=== PATIENT | male | born 1945 | race Caucasian/White ===

== ENCOUNTER 2017-09-21 10:00 | Day surgery (SDC) | payer OTHER, SELFPAY ==
[2017-09-21] MEDS: PROPARACAINE 0.5% OPHTH SOL 2 DROPS EYE-OP (10:40)
[2017-09-21 10:46] VITALS: BMI 23.7
[2017-09-21] MEDS: CATARACT EYE COMPOUND (10 DROPS/SYRINGE) 3 DROPS EYE-OP (10:49)
[2017-09-21 10:51] VITALS: BP 140/70; PULSE 52; RESP 16; TEMP 36.2; O2SAT 98
--- NOTE | 2017-09-21 11:32 | P.OP.PRE_ITS ---
Pre-operative Note Interval Note Changes: No
--- NOTE | 2017-09-21 11:32 | PM.PREOP ---
Pre-operative Note Interval Note Changes: No
--- NOTE | 2017-09-21 11:33 | P.OP_ITS ---
Operative Date/Time/Diagnoses Pre-op diagnosis: Cataract Left eye Post-op diagnosis: same Procedure & Clinicians Surgeon: Mulugeta Khan Anesthesia Type: MAC +/- and Sedation Operative Notes Procedure in detail: Patient brought to the operating suite. Tetracaine drops placed in the left eye. Patient was prepped and draped in sterile manner. Wire lid speculum was placed in the eye. Betadine drops were placed on the eye. This was irrigated. Lidocaine jelly was placed on the eye. A paracentesis port was created with a side-port blade. 0.1 mL 1% preservative free lidocaine was injected into the anterior chamber. The anterior chamber was deepened with viscoelastic. 2.6 mm keratome was used to create a temporal clear corneal incision. Cystotome and Utrata forceps were used to create continuous tear capsulorrhexis. Balanced salt solution was used to hydro dissect the nucleus. The phacoemulsification handpiece was inserted and the nucleus was removed using the stop and chop technique. The irrigation aspiration handpiece was inserted and the remaining cortex was removed. Anterior chamber was deepened with viscoelastic. An Matson ZCB00 intraocular lens with a power of 23.5 was injected into the capsular bag. Irrigation aspiration handpiece was inserted and the remaining viscoelastic was removed. Incision was hydrated with balanced salt solution and found to be leak free with pressure with Weck- Janna sponges. 0.1 mL Vigamox injected anterior chamber. 0.3 mL Kenalog 10 mg was injected subconjunctivally. Lid speculum was removed. The patient left the operating room in excellent condition. Complications: none Condition: stable Disposition: same day surgery
[2017-09-21] MEDS: CHONDROIDTIN/SOD HYALURONATE 1.05 ML SYRINGE INTRAOCULA (11:46)
[2017-09-21] MEDS: MOXIFLOXACIN OPHTH DROPS 3 ML BOTTLE 2 DROPS INJ (11:47)
[2017-09-21] MEDS: PHENYLEPHRINE/LIDOCAINE 3ML VIAL (OR) EYE-OP (11:47)
[2017-09-21] MEDS: LIDOCAINE JELLY 2% 5 ML 1 APPLIC TOP (11:47)
[2017-09-21] MEDS: TETRACAINE 0.5% OPHTH DROPS 15 ML 2 DROPS EYE-LEFT (11:47)
[2017-09-21] MEDS: TRIAMCINOLONE 50 MG/5 ML VIAL INJ (11:48)
[2017-09-21] MEDS: BALANCED SALT IRRIG SOLN NO.2 500 ML, EPINEPHrine 1 MG IRR (11:49)
[2017-09-21 12:09] VITALS: BP 138/81; PULSE 52; RESP 16; TEMP 36.7; O2SAT 94
== END 2017-09-21 12:25 ==
LOC: OR 10:00
PROVIDERS: PCP Internal Medicine; Visit Provider Ophthalmology
DX: H25.12 Age-related nuclear cataract, left eye (principal)
CPT/HCPCS: J0171; J2250; J3010; J3301

== ENCOUNTER 2017-10-12 08:02 | Day surgery (SDC) | payer OTHER, SELFPAY ==
[2017-10-12] MEDS: PROPARACAINE 0.5% OPHTH SOL 2 DROPS EYE-OP (09:01)
[2017-10-12 09:09] VITALS: BP 139/70; PULSE 54; RESP 16; TEMP 36.5; O2SAT 99; BMI 23.2
[2017-10-12] MEDS: CATARACT EYE COMPOUND (10 DROPS/SYRINGE) 3 DROPS EYE-OP (09:20)
--- NOTE | 2017-10-12 09:40 | P.OP.PRE_ITS ---
Pre-operative Note Interval Note Changes: No
--- NOTE | 2017-10-12 09:40 | PM.PREOP ---
Pre-operative Note Interval Note Changes: No
--- NOTE | 2017-10-12 09:41 | P.OP_ITS ---
Operative Date/Time/Diagnoses Pre-op diagnosis: Cataract Right eye Post-op diagnosis: same Procedure & Clinicians Procedure: Cataract Surgery Same procedure as scheduled: Yes Surgeon: Mulugeta Khan Anesthesia Type: MAC +/- and Sedation Operative Notes Procedure in detail: Patient brought to the operating suite. Tetracaine drops placed in the right eye. Patient was prepped and draped in sterile manner. Wire lid speculum was placed in the eye. Betadine drops were placed on the eye. This was irrigated. Lidocaine jelly was placed on the eye. A paracentesis port was created with a side-port blade. 0.1 mL 1% preservative free lidocaine was injected into the anterior chamber. The anterior chamber was deepened with viscoelastic. 2.6 mm keratome was used to create a temporal clear corneal incision. Cystotome and Utrata forceps were used to create continuous tear capsulorrhexis. Balanced salt solution was used to hydro dissect the nucleus. The phacoemulsification handpiece was inserted and the nucleus was removed using the stop and chop technique. The irrigation aspiration handpiece was inserted and the remaining cortex was removed. Anterior chamber was deepened with viscoelastic. An Matson ZCB00 intraocular lens with a power of 25.0 was injected into the capsular bag. Irrigation aspiration handpiece was inserted and the remaining viscoelastic was removed. Incision was hydrated with balanced salt solution and found to be leak free with pressure with Weck- Janna sponges. 0.1 mL Vigamox injected anterior chamber. 0.3 mL Kenalog 10 mg was injected subconjunctivally. Lid speculum was removed. The patient left the operating room in excellent condition. Complications: none Condition: stable Disposition: same day surgery
[2017-10-12] MEDS: CHONDROIDTIN/SOD HYALURONATE 1.05 ML SYRINGE INTRAOCULA (09:49)
[2017-10-12] MEDS: TETRACAINE 0.5% OPHTH DROPS 15 ML 2 DROPS EYE-RIGHT (09:50)
[2017-10-12] MEDS: PHENYLEPHRINE/LIDOCAINE 3ML VIAL (OR) EYE-OP (09:50)
[2017-10-12] MEDS: LIDOCAINE JELLY 2% 5 ML 1 APPLIC TOP (09:50)
[2017-10-12] MEDS: MOXIFLOXACIN OPHTH DROPS 3 ML BOTTLE 2 DROPS INJ (09:50)
[2017-10-12] MEDS: BALANCED SALT IRRIG SOLN NO.2 500 ML, EPINEPHrine 1 MG IRR (09:51)
[2017-10-12] MEDS: TRIAMCINOLONE 50 MG/5 ML VIAL INJ (09:51)
[2017-10-12 10:00] VITALS: BP 121/75; PULSE 74; RESP 16; TEMP 36.4; O2SAT 95
== END 2017-10-12 10:03 | disposition home or self-care (01) ==
PROVIDERS: PCP Internal Medicine; Visit Provider Ophthalmology
DX: H25.11 Age-related nuclear cataract, right eye (principal)
CPT/HCPCS: J0171; J2250; J3010; J3301

== ENCOUNTER → 2018-12-08 08:13 | Outpatient (CLI) | payer OTHER, SELFPAY ==
[2018-12-08 09:16] LABS: Aspartate Aminotransferase 27 IU/L (17-59); Cholesterol 167 mg/dL (140-199); HDL Cholesterol 56 mg/dL (40-60); LDL Cholesterol Calculated 92 mg/dL (<100); Triglycerides 94 mg/dL (35-150)
[2018-12-08 09:45] LABS: TSH w/ Reflex to FT4 1.26 uIU/mL (0.47-4.68)
[2018-12-08 12:29] LABS: Prostate Specific Antigen 0.079 ng/mL (0.10-4.00)
== END ==
PROVIDERS: PCP Internal Medicine; Visit Provider Internal Medicine
DX: E03.9 Hypothyroidism, unspecified (principal); C61 Malignant neoplasm of prostate; E78.2 Mixed hyperlipidemia
CPT/HCPCS: 36415; 80061; 84153; 84443; 84450

== ENCOUNTER → 2019-10-31 19:04 | Outpatient (ROUT) | payer MEDICARE, SELFPAY ==
[2019-10-31 19:12] LABS: Add Manual Diff / Slide Review NO; Basophils Absolute Auto 0 /uL (0-100); Basophils Percent Auto 0.7 % (0-2); Eosinophils Absolute Auto 0 /uL (0-450); Eosinophils Percent Auto 0.6 % (2-4); Hematocrit 42.3 % (41-53); Lymphocytes Absolute Auto 2100 /uL (1100-4500); Lymphocytes Percent Auto 39.7 % (25-40); Mean Corpuscular Hemoglobin 30.9 PG (26-34); Mean Corpuscular Volume 93.5 fL (80-100); Monocytes Absolute Auto 400 /uL (0-900); Monocytes Percent Auto 6.5 % (3-14); Neutrophils Absolute Auto 2800 /uL (1500-7000); Neutrophils Percent Auto 52.5 % (50-75); Platelet Count 200 X10^3/uL (150-400); Red Blood Cell Count 4.52 X10^6/uL (4.5-5.9); Red Cell Distribution Width 13.1 % (11.6-14.8); White Blood Cell Count 5.4 X10^3/uL (4.5-11.0)
[2019-10-31 19:21] LABS: Aspartate Aminotransferase 36 IU/L (17-59); BUN Creatinine Ratio 12.1 (6-22); Blood Urea Nitrogen 12 mg/dL (9-20); Calcium 9.1 mg/dL (8.4-10.2); Carbon Dioxide 25 mmol/L (22-32); Chloride 103 mmol/L (98-107); Cholesterol 160 mg/dL (140-199); Estimated Glomerular Filt Rate > 60.0 mL/min (>60); Glucose 93 mg/dL (80-110); HDL Cholesterol 54 mg/dL (40-60); HEMOLYSIS 39 (0-50); LDL Cholesterol Calculated 93 mg/dL (<100); Potassium 4.6 mmol/L (3.4-5.1); Sodium 134 mmol/L (137-145); Triglycerides 63 mg/dL (35-150)
[2019-10-31 19:52] LABS: Prostate Specific Antigen < 0.064 ng/mL (0.10-4.00)
[2019-10-31 20:10] LABS: Vitamin B12 676 pg/mL (239-931)
[2019-10-31 20:15] LABS: Free T4, Direct Thyroxine 2.27 ng/dL (0.78-2.19)
[2019-11-02 11:59] LABS: Vitamin D 25 Hydroxy (D3) 43.5 ng/mL (30.0-100.0)
== END ==
PROVIDERS: PCP Internal Medicine; Visit Provider Internal Medicine
DX: E53.8 Deficiency of other specified B group vitamins (principal); E03.9 Hypothyroidism, unspecified; E78.2 Mixed hyperlipidemia; C61 Malignant neoplasm of prostate; E55.9 Vitamin D deficiency, unspecified
CPT/HCPCS: 80048; 80061; 82306; 82607; 84153; 84439; 84443; 84450; 85025

== ENCOUNTER → 2019-11-13 09:00 | Outpatient (CLI) | payer MEDICARE, SELFPAY ==
--- NOTE | 2019-11-13 09:17 | DI.CT.S_ITS ---
PROCEDURE: CT ABDOMEN PELVIS W CON INDICATIONS: Procedure and treatment not carried out for other TECHNIQUE: After the administration of oral and intravenous contrast, 5 mm thick sections acquired from the diaphragms to the symphysis. 5 mm thick coronal and sagittal reformats were performed. For radiation dose reduction, the following was used: automated exposure control, adjustment of mA and/or kV according to patient size. COMPARISON: None. FINDINGS: Image quality: Excellent. ABDOMEN: Lung bases: Mild opacity at the right lung base. No pleural effusion. Heart size is normal. Trace oral contrast in the distal esophagus. Solid organs: Liver is normal in size and enhancement. No focal lesion. Gallbladder is unremarkable. Biliary system is non-dilated. Pancreas enhances normally. Spleen is normal in size and enhancement. Small splenule is. The small nodule in the adjacent to the the stomach and splenic hilum most likely additional splenule. No adrenal nodules. Kidneys are normal in size and enhancement, without hydronephrosis. Left kidney simple appearing cyst. Peritoneum and bowel: No small bowel obstruction. Probable small duodenal diverticulum. Colonic diverticulosis. Appendix is normal caliber. No free fluid or air. Nodes and vessels: No retroperitoneal or mesenteric adenopathy. Aorta and inferior vena cava are normal in caliber. Miscellaneous: No ventral hernias. PELVIS: Genitourinary: Bladder wall thickness is normal. Miscellaneous: No inguinal hernias or adenopathy. Bones: No suspicious bony lesions. Schmorl's nodes. No vertebral body compression fractures. IMPRESSION: 1. No focal hepatic lesion. 2. No enlarged adenopathy. 3. No colonic mass identified. -recommend correlation with recent colonoscopy. 4. Diverticulosis without diverticulitis. 5. No free fluid. 6. Mild opacity at the right lung base. This could be due to infectious/inflammatory etiology versus atelectasis or aspiration. Dictated by: Garrett Hendrickson M.D. on 11/13/2019 at 10:44 Approved by: Garrett Hendricskon M.D. on 11/13/2019 at 10:56
== END ==
PROVIDERS: PCP Internal Medicine; Referring Provider Internal Medicine; Visit Provider Internal Medicine Gastroenterology
DX: K57.90 Diverticulosis of intestine, part unspecified, without perforation or abscess without bleeding (principal); N28.1 Cyst of kidney, acquired
CPT/HCPCS: 74177; Q9967

== ENCOUNTER → 2020-06-27 09:46 | Outpatient (CLI) | payer OTHER, SELFPAY ==
[2020-06-27 11:22] LABS: Vitamin D 25 Hydroxy (D3) 49.3 ng/mL (30.0-100.0)
[2020-06-27 11:35] LABS: TSH w/ Reflex to FT4 3.54 uIU/mL (0.47-4.68)
[2020-06-27 11:36] LABS: Prostate Specific Antigen 0.196 ng/mL (0.10-4.00)
[2020-06-27 11:55] LABS: Vitamin B12 550 pg/mL (239-931)
== END ==
PROVIDERS: PCP Internal Medicine; Referring Provider Internal Medicine; Visit Provider Internal Medicine
DX: E03.9 Hypothyroidism, unspecified (principal); Z85.46 Personal history of malignant neoplasm of prostate; E55.9 Vitamin D deficiency, unspecified; E53.8 Deficiency of other specified B group vitamins
CPT/HCPCS: 36415; 82306; 82607; 84153; 84443

== ENCOUNTER → 2021-12-12 13:06 | Outpatient (CLI) | payer MEDICARE, SELFPAY ==
[2021-12-12 13:54] LABS: Hemoglobin 13.8 g/dL (13.5-17.5); Mean Corpuscular HGB Conc 34.6 % (30-36); Mean Corpuscular Hemoglobin 31.9 PG (26-34); Mean Corpuscular Volume 92.3 fL (80-100); Platelet Count 185 X10^3/uL (150-400); Red Blood Cell Count 4.34 X10^6/uL (4.5-5.9); Red Cell Distribution Width 13.4 % (11.6-14.8); White Blood Cell Count 6.8 X10^3/uL (4.5-11.0)
[2021-12-12 14:23] LABS: Alanine Aminotransferase 20 IU/L (<50); Albumin 3.9 g/dL (3.5-5.0); Albumin Globulin Ratio 1.1 (1.0-2.8); Alkaline Phosphatase 66 U/L (38-126); Aspartate Aminotransferase 31 IU/L (17-59); BUN Creatinine Ratio 16.9 (6-22); Bilirubin Total 0.8 mg/dL (0.2-1.3); Blood Urea Nitrogen 20 mg/dL (9-20); Calcium 8.4 mg/dL (8.4-10.2); Carbon Dioxide 27 mmol/L (22-32); Chloride 101 mmol/L (98-107); Cholesterol 153 mg/dL (140-199); Estimated Glomerular Filt Rate > 60 mL/min (>60); Globulin 3.5 g/dL (1.7-4.1); Glucose 76 mg/dL (80-110); HDL Cholesterol 57 mg/dL (40-60); HEMOLYSIS < 15 (0-50); LDL Cholesterol Calculated 67 mg/dL (<100); Potassium 4.5 mmol/L (3.4-5.1); Sodium 136 mmol/L (137-145); Total Protein 7.4 g/dL (6.3-8.2); Triglycerides 145 mg/dL (35-150)
[2021-12-12 14:52] LABS: TSH w/ Reflex to FT4 1.73 uIU/mL (0.47-4.68)
[2021-12-12 14:53] LABS: Prostate Specific Antigen 0.147 ng/mL (0.10-4.00)
[2021-12-12 15:12] LABS: Vitamin B12 626 pg/mL (239-931)
== END ==
PROVIDERS: PCP Internal Medicine; Referring Provider Internal Medicine; Visit Provider Internal Medicine
DX: C61 Malignant neoplasm of prostate (principal); E03.9 Hypothyroidism, unspecified; E53.8 Deficiency of other specified B group vitamins; E78.2 Mixed hyperlipidemia
CPT/HCPCS: 36415; 80053; 80061; 82607; 84153; 84443; 85027

== ENCOUNTER → 2022-08-02 11:26 | Outpatient (CLI) | payer OTHER, SELFPAY ==
--- NOTE | 2022-08-02 11:27 | DI.MRI.S_ITS ---
PROCEDURE: MR KNEE LT WO CON INDICATIONS: Left knee pain/torn meniscus TECHNIQUE: Noncontrast sagittal PD fast spin echo and T2 fast spin echo with fat saturation, sagittal 3-D FLASH with fat saturation; coronal T1 spin echo and PD fast spin echo with fat saturation, and axial PD fast spin echo with fat saturation through the knee. COMPARISON: [facility], CR, XR KNEE ARTHRITIC SERIES LT, 11/28/2020, 10:38. FINDINGS: Image quality: Excellent. Anterior Cruciate Ligament: Moderate mucoid degeneration of the anterior cruciate ligament with posterior pericruciate cysts, the largest of which measures approximately 13 x 5 by 8 mm. Posterior Cruciate Ligament: Intact. Medial Collateral Ligament: Mild thickening of the proximal medial collateral ligament is most likely secondary to a remote prior low-grade sprain. Lateral Collateral Ligament: Intact. Medial Meniscus: There is complex tearing of the medial meniscus. A horizontal oblique component is seen at the junction of the posterior horn and body extending to the inner third of the tibial articular surface. Additional horizontal oblique component is seen at the medial meniscal body extending to the outer third of the femoral articular surface. There is shallow radial tearing at the posterior root attachment of the medial meniscus. No significant extrusion of the medial meniscal body. Lateral Meniscus: Free edge fibrillation versus foci of shallow radial tearing at the body and the posterior horn of the lateral meniscus. Medial and Lateral Tendons: The semimembranosus tendon insertions and meniscocapsular junction appear intact. Visualized portions of the pes anserinus tendons appear normal. No abnormal bursal fluid. The long and short heads of the biceps femoris tendon appear intact. The popliteus tendon appears intact. No signs of posterolateral corner injury. Iliotibial band appears normal. Anterior Structures: The quadriceps and patellar tendons appear intact. No patellar subluxation. No femoral trochlear dysplasia or ventral trochlear prominence. No edema in the infrapatellar fat pad. Bones: No acute trabecular bone injury or fracture. Traction cystic changes are seen adjacent to the toes once of the anterior cruciate ligament. Medial Femorotibial Cartilage: Mild generalized cartilage thinning in the weight-bearing portion of the medial femorotibial compartment. Lateral Femorotibial Cartilage: Partial-thickness cartilage irregularity at the posterior weight-bearing portion of the lateral femoral condyle. Patellofemoral Cartilage: Mild partial-thickness cartilage thinning and irregularity at the trochlear groove and median ridge of the patella. Soft Tissues: There is a small joint effusion. Small medial popliteal cyst. Nonspecific prepatellar subcutaneous soft tissue edema. The musculature surrounding the knee is normal in bulk. Mild varicose veins are noted in the lateral subcutaneous tissues. IMPRESSION: 1. Complex tearing of the medial meniscus occlude the horizontal oblique components of the meniscal body extending to the tibial and fibular articular surfaces and a shallow radial component at the posterior root attachment. No significant meniscal extrusion. 2. Small foci of free edge fibrillation versus shallow radial tearing of the body and posterior horn of the lateral meniscus. 3. Moderate mucoid degeneration of the anterior cruciate ligament with posterior pericruciate cysts. 4. Chronic grade 1 sprain of the proximal medial collateral ligament. 5. Tricompartmental grade 2 chondromalacia. 6. Small joint effusion. Small medial popliteal cyst. Approved by: Callum Mejias M.D. on 08/03/2022 at 9:10
== END ==
PROVIDERS: PCP Internal Medicine; Referring Provider Internal Medicine; Visit Provider Internal Medicine
DX: S83.232A Complex tear of medial meniscus, current injury, left knee, initial encounter (principal); S83.412A Sprain of medial collateral ligament of left knee, initial encounter; M25.562 Pain in left knee; M94.262 Chondromalacia, left knee; M25.462 Effusion, left knee; M71.22 Synovial cyst of popliteal space [Baker], left knee; X58.XXXA Exposure to other specified factors, initial encounter
CPT/HCPCS: 73721

== ENCOUNTER → 2022-09-19 12:42 | Outpatient (CLI) | payer OTHER, SELFPAY ==
[2022-09-21 16:29] LABS: C difficie Toxins A and B, EIA Negative (Negative)
== END ==
PROVIDERS: PCP Internal Medicine; Referring Provider Internal Medicine; Visit Provider Internal Medicine
DX: K58.0 Irritable bowel syndrome with diarrhea (principal); R19.7 Diarrhea, unspecified
CPT/HCPCS: 87324

== ENCOUNTER 2022-10-04 19:12 | Emergency (ER) | payer OTHER, SELFPAY ==
[2022-10-04 19:15] VITALS: BP 159/77; PULSE 66; RESP 20; TEMP 36.6; O2SAT 100; BMI 23.1
[2022-10-04 20:33] LABS: Bacteria Urine None Seen; Culture Indicated Urine Cult Not Indicated; RBC Urine None Seen (0-5/HPF); Squamous Epithelial Cell Urine None Seen (0-5/HPF); WBC Urine None Seen (0-5/HPF)
--- NOTE | 2022-10-04 20:45 | ED.ABDPAIN ---
HPI - Abdominal Pain General Chief Complaint: Abdominal Pain Stated Complaint: Abd pain thinks maybe hernia Time Seen by Provider: 10/04/22 19:24 Source: patient Mode of arrival: Ambulatory History of Present Illness HPI narrative: 77-year-old male nonsmoker with noncontributory medical history presents with his in the chief complaint of a painful bulge in his right groin and concern for hernia. He states that he was helping lift some heavy objects with friends earlier in the day and felt a sudden onset sharp, burning pain in his right groin and upon palpation noticed swelling. He states that he was able to push this swollen bulge in and thinks he likes he has a hernia. He is never had any trouble like this in the past. He is noticed the bulge come back out a few times over the course of the day but it seems to go back in without trouble. He denies any fever or chills. He has had no vomiting, no trouble with bowel movements and is still passing gas without difficulty. Related Data Previous Rx's Medication Instructions Recorded Coloplast SpeediCath #[id number] #90 ea 03/25/22 cyanocobalamin (vitamin B-12) 1,000 mcg IM Q2W #6 mL 03/25/22 1,000 mcg/mL injection solution levothyroxine 137 mcg tablet 137 mcg PO DAILY #90 tabs 03/25/22 meloxicam 7.5 mg tablet 7.5 mg PO DAILY #90 tabs 03/25/22 trazodone 50 mg tablet 50 mg PO BEDTIME PRN sleep #90 tabs 03/25/22 rosuvastatin 20 mg tablet 20 mg PO Q OTHER DAY #45 tabs 03/31/22 sulfamethoxazole 800 1 tab PO BID #14 tabs 09/11/22 mg-trimethoprim 160 mg tablet Allergies Allergy/AdvReac Type Severity Reaction Status Date / Time artichoke Allergy Severe throat Verified 09/11/22 10:11 swelling tamsulosin [From Flomax] AdvReac Verified 10/04/22 19:26 Review of Systems Review of Systems Narrative: GENERAL: Denies chills, fatigue, malaise, fever, sweats. HEENT: Denies sinus pain, ear pain, sore throat, difficulty swallowing, dizziness. RESPIRATORY: Denies dyspnea, cough, wheezing, hemoptysis, sputum. CARDIOVASCULAR: Denies chest pain, palpitations, orthopnea, edema, GASTROINTESTINAL: See HPI : See HPI MUSCULOSKELETAL: denies weakness, joint pain, or bony pain SKIN: Denies rash, skin lesions, or other NEUROLOGIC: Denies weakness, headache, numbness, change in speech, confusion, seizures, incoordination. PSYCHIATRIC: No concerning psychosocial issues. 12 point review of systems is negative except for those stated above Patient History Medical History Acquired hypothyroidism B12 deficiency Chronic low back pain Colon polyps (~2001) Hemorrhoid History of prostate cancer Irritable bowel syndrome with diarrhea Left knee injury Mixed hyperlipidemia Peripheral neuropathy Pernicious anemia Primary osteoarthritis involving multiple joints Seasonal allergies Urinary retention Venous (peripheral) insufficiency Surgical History Anesthesia History of cataract removal with insertion of prosthetic lens (~2018) History of hemorrhoidectomy (~2004) History of prostate surgery (~2017) History of umbilical hernia repair (~2007) S/P foot surgery, right (~2006) Family History Father Diabetes mellitus Mother Karlo's disease Grandfather History of heart disease Social History details: (Carri), no children household members: spouse Smoking Status: Never smoker Smoking Status: Never smoker alcohol intake frequency: 0-2 drinks per day Substance Use Type: marijuana Exam Narrative Exam Narrative: GEN: AOx3 and in mild distress EYES: Pupils are equal, round, and reactive to light and accommodation. Extraoccular muscles are intact bilaterally. There is no subconjunctival hemorrhage or exudate. CHEST: Lungs are clear to auscultation bilaterally and free of wheezes, rales, or rhonchi. Heart rate is regular rhythm, there are no murmurs, clicks, rubs, or gallops. There is no chest wall tenderness. ABD: Abdomen is soft and nontender. There is no guarding or rebound. Bowel sounds are normal in all 4 quadrants. There is no mass or organomegaly. : tender bulge in R inguinal region is easily reduced. NO overlying erythema. Examined while standing. EXT: Full painless ROM of all extremities with no loss of sensation or strength. SKIN: Warm, pink, and dry. No erythema or rash Initial Vital Signs Initial Vital Signs: Vital Signs Temperature 97.8 F 10/04/22 19:15 Pulse Rate 66 10/04/22 19:15 Respiratory Rate 20 10/04/22 19:15 Blood Pressure 159/77 H 10/04/22 19:15 Pulse Oximetry 100 10/04/22 19:15 Oxygen Delivery Method Room Air 10/04/22 19:15 Course Orders Ordered: ED Orders 10/04/22 19:30 Urine Microscopic Stat 10/04/22 21:04 US abdomen limited Stat Vital Signs Vital signs: Vital Signs - 8 hr 10/04/22 22:04 Pulse Rate 56 L Respiratory Rate 17 Blood Pressure 171/77 H Pulse Oximetry 99 Oxygen Delivery Method Room Air MDM - Abdominal Pain Lab Data Labs: Lab Results 10/04/22 Range/Units 19:30 Urine RBC None seen (0-5/HPF) Urine WBC None seen (0-5/HPF) Ur Squamous Epith Cells None seen (0-5/HPF) Urine Bacteria None seen (None) Ur Culture Indicated? Cult not indicated Point of care testing: Urine Dip Bedside Urine Glucose Negative Bedside Urine Bilirubin - Negative Bedside Urine Ketone - Negative Urine Specific [place] 1.025 Bedside Urine Occult Blood + Bedside Urine pH 6 Bedside Urine Protein - Negative Bedside Urine Urobilinogen - Negative Bedside Urine Nitrite - Negative Bedside Urine Leukocytes - Negative Esterase MDM Narrative Medical decision making narrative: [77] year old patient presents with painful bulge in right groin after lifting heavy object Multiple etiologies for patient's symptoms considered including, but not limited to: [Inguinal hernia versus rent versus muscle strain versus other] Prior Charts reviewed in our EMR Primary Historian: patient Imaging reviewed: Ultrasound demonstrates reducible fat containing inguinal hernia Patient with reassuring history and physical exam, very well-appearing and no indication for labs. History and physical are suggestive of reducible hernia which is confirmed by ultrasound. No indication for further evaluation or treatment at this time. He is encouraged to avoid activities which would increase his intra-abdominal pressure and therefore make the hernia more likely to protrude. He verbalizes understanding.. Findings and discharge diagnosis discussed with patient/family followed by verbalization of understanding Return precautions discussed with patient/family whom verbalize understanding of diagnosis and plan Discharge Plan Departure Patient Disposition: Home Clinical Impression: Inguinal hernia Instructions: DI for Groin Hernia Activity Restrictions/Additional Instructions: *You have been diagnosed with [small reducible fat containing right inguinal hernia] *What to do: *Please continue to take your regular medications as directed. [ ] New medication prescriptions sent to your pharmacy: [ ] [ ] New medication written as a paper prescription [ ] No new medications given *Please follow up with your primary care provider in 2-3 days, call for an appointment. Let them know you were seen in the Emergency Department and that we ask that you be seen in follow up. We will electronically transmit a record of today's note if your PCP is in our system * as we discussed avoid lifting heavy objects, straining on the toilet and other activities that can increase pressure in your abdomen which makes the hernia more likely took come out which then increases the chance of it becoming stuck which becomes a surgical emergency *Return to Emergency Department if you should have any new, worsening or concerning symptoms, such as [fever greater than 101 F, shaking chills, worsening pain, persistent vomiting or other bothersome symptoms] Have an amazing trip, please consider shooting me an email on your return to let me know some feedback [email or web address] Prescriptions: No Action (DME) Coloplast SpeediCath #[id number] See Rx Instructions .Route .MEDSUPPLY Qty: 90 3RF Rx Instructions: As directed; Coloplast SpeediCath #[id number]. cyanocobalamin (vitamin B-12) 1,000 mcg/mL solution 1,000 mcg IM Q2W Qty: 6 3RF levothyroxine 137 mcg tablet 137 mcg PO DAILY Qty: 90 3RF meloxicam 7.5 mg tablet 7.5 mg PO DAILY Qty: 90 3RF trazodone 50 mg tablet 50 mg PO BEDTIME PRN (Reason: sleep) Qty: 90 3RF rosuvastatin 20 mg tablet 20 mg PO Q OTHER DAY Qty: 45 3RF sulfamethoxazole-trimethoprim 800-160 mg tablet 1 tab PO BID Qty: 14 2RF Referrals: Noemi Vigil MD [Physician] - Brando Alonzo MD [Primary Care Provider] - Stand Alone Forms: Patient Portal/API
--- NOTE | 2022-10-04 21:04 | DI.US.S_ITS ---
PROCEDURE: US ABDOMEN LIMITED INDICATIONS: PALPABLE RIGHT INGUINAL LUMP TECHNIQUE: Real-time focused scanning was performed of the right inguinal region, with image documentation. COMPARISON: None. FINDINGS: There is a reducible right inguinal hernia which appears to contain herniated fat. No definite herniated bowel loops. The hernia defect measures approximately 1.3 cm in transverse dimension. IMPRESSION: 1. Reducible fat-containing right inguinal hernia. No definite herniated bowel identified sonographically but if clinically indicated further evaluation may be obtained with CT. Dictated by: Eren Albright M.D. on 10/04/2022 at 23:02 Approved by: Eren Albright M.D. on 10/04/2022 at 23:05
[2022-10-04 22:04] VITALS: BP 171/77; PULSE 56; RESP 17; O2SAT 99
== END 2022-10-04 22:05 | disposition home or self-care (01) ==
PROVIDERS: Emergency Provider Emergency Medicine; PCP Internal Medicine
DX: K40.90 Unilateral inguinal hernia, without obstruction or gangrene, not specified as recurrent (principal)
CPT/HCPCS: 76705; 81003; 81015; 99281; 99283

== ENCOUNTER → 2022-10-05 15:24 | Outpatient (CLI) | payer OTHER, SELFPAY ==
[2022-10-05 17:34] LABS: TSH w/ Reflex to FT4 0.98 uIU/mL (0.47-4.68)
[2022-10-05 17:51] LABS: Vitamin B12 690 pg/mL (239-931)
== END ==
PROVIDERS: PCP Internal Medicine; Referring Provider Internal Medicine; Visit Provider Internal Medicine
DX: E03.9 Hypothyroidism, unspecified (principal); E53.8 Deficiency of other specified B group vitamins
CPT/HCPCS: 36415; 82607; 84443

== ENCOUNTER → 2022-10-14 10:18 | Outpatient (CLI) | payer OTHER, SELFPAY ==
[2022-10-14 11:23] LABS: Add Manual Diff / Slide Review NO; Basophils Absolute Auto 0 /uL (0-100); Basophils Percent Auto 0.7 % (0-2); Eosinophils Absolute Auto 100 /uL (0-450); Eosinophils Percent Auto 1.4 % (2-4); Hemoglobin 14.3 g/dL (13.5-17.5); Lymphocytes Absolute Auto 1900 /uL (1100-4500); Lymphocytes Percent Auto 36.4 % (25-40); Mean Corpuscular HGB Conc 34.1 % (30-36); Mean Corpuscular Hemoglobin 31.2 PG (26-34); Mean Corpuscular Volume 91.6 fL (80-100); Monocytes Absolute Auto 400 /uL (0-900); Monocytes Percent Auto 7.4 % (3-14); Neutrophils Absolute Auto 2800 /uL (1500-7000); Neutrophils Percent Auto 54.1 % (50-75); Platelet Count 191 X10^3/uL (150-400); Red Blood Cell Count 4.59 X10^6/uL (4.5-5.9); White Blood Cell Count 5.2 X10^3/uL (4.5-11.0)
[2022-10-14 11:34] LABS: Alanine Aminotransferase 22 IU/L (<50); Albumin Globulin Ratio 1.3 (1.0-2.8); Alkaline Phosphatase 67 U/L (38-126); Aspartate Aminotransferase 31 IU/L (17-59); BUN Creatinine Ratio 12.3 (6-22); Bilirubin Total 0.7 mg/dL (0.2-1.3); Blood Urea Nitrogen 14 mg/dL (9-20); Calcium 9.3 mg/dL (8.4-10.2); Carbon Dioxide 30 mmol/L (22-32); Chloride 98 mmol/L (98-107); Estimated Glomerular Filt Rate > 60 mL/min (>60); Glucose 67 mg/dL (80-110); HEMOLYSIS < 15 (0-50); Potassium 4.3 mmol/L (3.4-5.1); Sodium 135 mmol/L (137-145)
== END ==
PROVIDERS: PCP Internal Medicine; Referring Provider Internal Medicine; Visit Provider Internal Medicine
DX: R10.30 Lower abdominal pain, unspecified (principal)
CPT/HCPCS: 36415; 80053; 85025

== ENCOUNTER → 2022-10-16 14:41 | Outpatient (CLI) | payer OTHER, SELFPAY ==
--- NOTE | 2022-10-16 14:42 | DI.CT.S_ITS ---
PROCEDURE: CT ABDOMEN PELVIS W CON INDICATIONS: LLQ abd pain TECHNIQUE: After the administration of oral and IV contrast, axial sections were acquired from the lung bases to the pubic symphysis. Coronal and sagittal reformats were performed. For radiation dose reduction, the following was used: automated exposure control, adjustment of mA and/or kV according to patient size. COMPARISON: CT, CT ABDOMEN PELVIS W CON, 11/13/2019, 9:50. FINDINGS: Image quality: Excellent. Lung bases: Micronodular infiltrate in the right, and to much lesser extent posterior lower lobes. No dense consolidations or pleural effusions. Tiny hiatal hernia. Heart: No significant findings. ABDOMEN: Liver: No masses Gallbladder: Normal wall thickness. Biliary ducts: Nondilated. Pancreas: Normal. Spleen: Normal size. Adrenal Glands: No nodules. Kidneys and Ureters: Normal enhancement. No hydronephrosis or hydroureter. No calcifications. Occasional subcentimeter cortical cysts. Stomach and Bowel: Stomach and small bowel loops are within normal limits. Wall thickening in the mid to distal portion of the redundant sigmoid colon. There are extensive diverticular changes in the sigmoid. Mild mucosal hyperemia in the proximal sigmoid colon. There are adjacent changes of increased vascularity. Several descending colonic diverticula are present. Colon is otherwise unremarkable. Normal appendix. Peritoneum: No abnormal intraperitoneal fluid. No free air. Ventral Wall: No hernia. Abdominal Nodes: No retroperitoneal or mesenteric adenopathy by size criteria. Vessels: Aorta and inferior vena cava are normal in size. Mild abdominal aortic atherosclerotic calcification. PELVIS: Pelvic Organs: Diminutive prostate gland. Bladder: Normal. Pelvic Nodes: No enlarged lymph nodes. Miscellaneous: No inguinal hernias are seen. Bones: Degenerative disc disease in the lumbar spine. No suspicious bone lesions. IMPRESSION: 1. Colonic diverticulosis without acute diverticulitis. Changes suggest recurrent and/or chronic diverticulitis sigmoid colon. 2. Micronodular infiltrate in both lower lobes suspicious for aspiration or other interstitial micronodular lung disease. This was mentioned on the prior exam. Images are not available for direct comparison. Dictated by: Kala Sidhu M.D. on 10/16/2022 at 23:02 Approved by: Kala Sidhu M.D. on 10/16/2022 at 23:10
== END ==
PROVIDERS: PCP Internal Medicine; Referring Provider Internal Medicine; Visit Provider Internal Medicine
DX: K57.90 Diverticulosis of intestine, part unspecified, without perforation or abscess without bleeding (principal); R10.30 Lower abdominal pain, unspecified
CPT/HCPCS: 74177

== ENCOUNTER 2022-11-20 13:13 | Day surgery (SDC) | payer OTHER, SELFPAY ==
[2022-11-16 14:48] VITALS: BMI 23.5
[2022-11-20 13:34] VITALS: BMI 23.5
[2022-11-20 13:43] VITALS: BP 138/69; PULSE 78; RESP 18; TEMP 36.7; O2SAT 98
[2022-11-20] MEDS: LACTATED RINGERS 1,000 ML 42 ML IV (13:46)
== END 2022-11-20 13:15 | disposition home or self-care (01) ==
PROVIDERS: PCP Internal Medicine; Referring Provider Surgery; Visit Provider Surgery
DX: K40.90 Unilateral inguinal hernia, without obstruction or gangrene, not specified as recurrent (principal); K42.9 Umbilical hernia without obstruction or gangrene; Z53.09 Procedure and treatment not carried out because of other contraindication
CPT/HCPCS: 82962

== ENCOUNTER 2022-11-24 12:30 | Day surgery (SDC) | payer OTHER, SELFPAY ==
[2022-11-23 14:04] VITALS: BMI 23.5
[2022-11-24] VITALS (7 sets, daily range): BP systolic 123–149; BP diastolic 72–83; PULSE 58–72; RESP 13–18; TEMP 36.3–36.4; O2SAT 96–99; BMI 23.5
[2022-11-24] MEDS: LACTATED RINGERS 1,000 ML 42 ML IV (13:08)
--- NOTE | 2022-11-24 13:25 | PM.PREOP ---
Pre-operative Note Interval Note History & Physical reviewed/Exam performed by Physician: Yes Changes to H&P: No
[2022-11-24] MEDS: CEFAZOLIN 2 GM/100 ML PREMIX 100 ML IV (14:32)
--- NOTE | 2022-11-24 14:54 | SUR.OPER ---
Supine on padded OR bed, head on pillow, arms padded and tucked at sides, legs uncrossed, safety belt at thigh, tape over blanket over lower legs .
[2022-11-24] MEDS: ACETAMINOPHEN IV 1,000 MG/100 ML VIAL 400 MG IV (15:09)
[2022-11-24] MEDS: BUPIVACAINE 0.25% (PF) VIAL 30 ML INJ (15:16)
--- NOTE | 2022-11-24 15:43 | PM.OP.1 ---
Operative Date/Time/Diagnoses Date of procedure: 11/24/22 Time of procedure: 15:43 Pre-op diagnosis: Recurrent umbilical hernia, right inguinal hernia Post-op diagnosis: same Procedure & Clinicians Procedure: Laparoscopic repair right inguinal hernia open repair of recurrent umbilical hernia Same procedure as scheduled: Yes Indications: 77-year-old man with a symptomatic recurrent hernia and new reducible symptomatic right inguinal. Surgeon: Urban Foley Director Of Corporate Sponsorships: Alfredito Boyd Click Yes if Unassisted: Yes Anesthesia Type: General Operative Notes Findings: Right inguinal-direct floor defect. No indirect hernia. Umbilical-2 cm fascial defect containing omentum Specimen(s): none sent Estimated Blood Loss (mL): 20 Procedure in detail: The patient was brought to the operating room and placed supine on the table. Bilateral sequential compression devices were applied. General anesthesia was induced and they were intubated with an endotracheal tube. A lainez cath was placed in sterile fashion. They received 2 g Ancef prior to skin incision. They were prepped and draped in sterile fashion. A time out was performed to ensure the correct patient, procedure and necessary equipment within the operating room. The skin was infiltrated with 0.25% bupivicaine. A 1 cm infra umbilical midline incision was made. The umbilical hernia sac was opened and the abdomen entered traumatically. A 10mm balloon port was placed and pneumoperitoneum was established at 15mm Hg. Inspection of the abdomen demonstrated no evidence of injury upon entry. Two 5 mm ports were then placed under direct visualization in the right and left lower quadrant lateral to the rectus muscle. Inspection of the abdomen demonstrated a right direct inguinal hernia no left-sided defect. The peritoneum 4 cm superior to the deep right inguinal ring between the medial umbilical ligament and the anterior superior iliac spine was incised. The medial preperitoneal dissection was carried out into the space of Retzius bluntly, the bladder was swept inferiorly, the pubis and Baudilio's ligament were identified. Next attention was turned towards the lateral aspect of the peritoneal flap. The preperitoneal fat with the testicular vessels was carefully dissected off the inferior peritoneal flap. The cord was carefully inspected there was no evidence of indirect defect or cord lipoma. The attachements to the direct hernia sac were divided and the direct defect was reduced. A large Bard 3D Max mesh was then placed into the abdomen and positioned such that the myopectineal orifice was completely covered with good overlap on all sides. The peritoneal flap was then repositioned back to its original position and a running V lock suture was used to close the peritoneum such that no bowel could herniate into the preperitoneal space. The area was examined for hemostasis. Attention was then turned to the umbilical hernia. The hernia sac was resected and the fascial edges freshened. The fascia defect was 2 cm in maximal diameter. A Bard Ventralex ST hernia patch 4 cm was inserted beneath the fascia defect and above the peritoneum in a sublay position. The mesh was anchored in multiple locations using Ethibond suture to the fascia and the fascial defect was closed over the mesh. The umbilical skin was tacked to the subcutaneous tissues and then the remainder of the subcutaneous tissues were reapproximated using 3 0 Vicryl. The port incisions were closed with Monocryl followed by the application of Dermabond. The sponge and instrument count at the end of the case was correct. Both testicles were entirely within the scrotum at the end of the case. The patient emerged from anesthsia was extubated and transferred to recovery in stable condition. Complications: none Post-operative Condition: stable Disposition: same day surgery
--- NOTE | 2022-11-24 16:00 | SUR.OPER ---
Bright red blood from penis after lainez was removed by LEANNE. made aware. ABD and mess panties placed on pt..
[2022-11-24] MEDS: ONDANSETRON 4 MG/2 ML INJ IV (16:04)
[2022-11-24] MEDS: OXYCODONE IR 5 MG TABLET PO (16:04)
== END 2022-11-24 17:25 | disposition home or self-care (01) ==
PROVIDERS: PCP Internal Medicine; Referring Provider Surgery; Visit Provider Surgery
PROC: 0YQ54ZZ Repair Right Inguinal Region, Percutaneous Endoscopic Approach (ICD-10-PCS; CPT 49650; principal; 2022-11-24 13:30)
PROC: (CPT 49650; 2022-11-24 13:30)
DX: K40.90 Unilateral inguinal hernia, without obstruction or gangrene, not specified as recurrent (principal); K42.9 Umbilical hernia without obstruction or gangrene
CPT/HCPCS: 49650; J0131; J0690; J1100; J2405; J2704; J3010

== ENCOUNTER → 2022-12-14 17:06 | Outpatient (CLI) | payer OTHER, SELFPAY ==
[2022-12-14 18:19] LABS: Cholesterol 153 mg/dL (140-199); HDL Cholesterol 56 mg/dL (40-60); LDL Cholesterol Calculated 75 mg/dL (<100); Triglycerides 111 mg/dL (35-150)
[2022-12-15 16:31] LABS: Prostate Specific Antigen 0.147 ng/mL (0.10-4.00)
== END ==
PROVIDERS: PCP Internal Medicine; Referring Provider Internal Medicine; Visit Provider Internal Medicine
DX: E78.2 Mixed hyperlipidemia (principal); Z85.46 Personal history of malignant neoplasm of prostate
CPT/HCPCS: 36415; 80061; 84153

== ENCOUNTER → 2022-12-18 10:21 | Outpatient (CLI) | payer OTHER, SELFPAY ==
--- NOTE | 2022-12-18 10:22 | DI.US.S_ITS ---
PROCEDURE: US ABDOMEN LIMITED INDICATIONS: GROIN MASS TECHNIQUE: Real-time focused scanning was performed of the inguinal region, with image documentation. COMPARISON: [facility], , US ABDOMEN LIMITED, 10/04/2022, 21:20. FINDINGS: With Valsalva, there is slight protrusion of bowel and fat into the left growing, without defect. IMPRESSION: No left inguinal hernia. Dictated by: Bryant Crump M.D. on 12/18/2022 at 13:18 Approved by: Bryant Crump M.D. on 12/18/2022 at 13:19
== END ==
PROVIDERS: PCP Internal Medicine; Referring Provider Surgery; Visit Provider Surgery
DX: R19.09 Other intra-abdominal and pelvic swelling, mass and lump (principal)
CPT/HCPCS: 76705

== ENCOUNTER → 2022-12-23 15:39 | Outpatient (CLI) | payer OTHER, SELFPAY ==
[2022-12-23 18:54] LABS: BUN Creatinine Ratio 12.8 (6-22); Blood Urea Nitrogen 14 mg/dL (9-20); Calcium 9.1 mg/dL (8.4-10.2); Carbon Dioxide 27 mmol/L (22-32); Chloride 99 mmol/L (98-107); Estimated Glomerular Filt Rate > 60 mL/min (>60); Glucose 96 mg/dL (80-110); HEMOLYSIS < 15 (0-50); Potassium 4.2 mmol/L (3.4-5.1); Sodium 134 mmol/L (137-145)
== END ==
PROVIDERS: PCP Internal Medicine; Referring Provider Surgery; Visit Provider Surgery
DX: R19.09 Other intra-abdominal and pelvic swelling, mass and lump (principal)
CPT/HCPCS: 36415; 80048

== ENCOUNTER → 2022-12-24 09:58 | Outpatient (CLI) | payer OTHER, SELFPAY ==
--- NOTE | 2022-12-24 10:01 | DI.CT.S_ITS ---
PROCEDURE: CT ABDOMEN PELVIS W CON INDICATIONS: R groin mass sp Lap hernia repair TECHNIQUE: After the administration of intravenous contrast, axial sections acquired from the lung bases to the pubic symphysis. Coronal and sagittal reformats were performed. For radiation dose reduction, the following was used: automated exposure control, adjustment of mA and/or kV according to patient size. COMPARISON: [facility], CT, CT ABDOMEN PELVIS W CON, 10/16/2022, 16:24. FINDINGS: Image quality: Excellent. Lung bases: Similar cluster of tree-in-bud nodules in the right lower lobe, nonspecific. Small hiatal hernia. Heart: No significant findings. ABDOMEN: Liver: No solid mass. Gallbladder and biliary tree: No gallstones or biliary dilation. Spleen: Normal size. Pancreas: No ductal dilation. Adrenal glands: No adrenal nodules. Kidneys: No hydronephrosis. No solid mass. No complex renal cysts which requires follow-up. Stomach and Bowel: Colonic diverticulosis without evidence of diverticulitis. Fecal debris within the small bowel. Peritoneum: No abnormal intraperitoneal fluid. No free air. Ventral Wall: No hernias. Abdominal Nodes: No retroperitoneal or mesenteric adenopathy by size criteria. Vessels: Aorta and inferior vena cava are normal in size. PELVIS: Pelvic Organs: Unremarkable. Bladder: Unremarkable. Pelvic Nodes: No enlarged lymph nodes. Miscellaneous: Recurrent right inguinal hernia containing a long segment of small bowel. Bones: Unremarkable. IMPRESSION: Recurrent right inguinal hernia containing a long segment of small bowel. Colonic diverticulosis without evidence of diverticulitis. Fecal debris within the small-bowel, usually indicating small intestinal bacterial overgrowth versus slow transit. Dictated by: Bryant Crump M.D. on 12/24/2022 at 10:59 Approved by: Bryant Crump M.D. on 12/24/2022 at 11:04
== END ==
PROVIDERS: PCP Internal Medicine; Referring Provider Surgery; Visit Provider Surgery
DX: K40.90 Unilateral inguinal hernia, without obstruction or gangrene, not specified as recurrent (principal); K57.90 Diverticulosis of intestine, part unspecified, without perforation or abscess without bleeding; R19.09 Other intra-abdominal and pelvic swelling, mass and lump
CPT/HCPCS: 74177; Q9967

== ENCOUNTER 2022-12-30 11:57 | Day surgery (SDC) | payer OTHER, SELFPAY ==
[2022-12-28 09:59] VITALS: BMI 23.3
[2022-12-30 12:16] VITALS: BMI 23.3
[2022-12-30 12:52] VITALS: BP 145/74; PULSE 81; RESP 18; TEMP 36.9; O2SAT 98
[2022-12-30] MEDS: LACTATED RINGERS 1,000 ML 21 ML IV ×2 (12:55→14:35)
--- NOTE | 2022-12-30 12:58 | SUR.OPER ---
Supine on padded OR bed, head on pillow, arms secured on padded arm boards at <90 degrees abduction, legs uncrossed, safety belt at thigh, tape over blanket over lower legs.
--- NOTE | 2022-12-30 13:29 | PM.PREOP ---
Pre-operative Note Interval Note History & Physical reviewed/Exam performed by Physician: Yes Changes to H&P: No
[2022-12-30] MEDS: CEFAZOLIN 2 GM/100 ML PREMIX 100 ML IV (13:51)
[2022-12-30] MEDS: ACETAMINOPHEN IV 1,000 MG/100 ML VIAL 400 MG IV (14:00)
[2022-12-30] MEDS: BUPIVACAINE 0.25% (PF) VIAL 30 ML INJ (14:11)
[2022-12-30 15:10] VITALS: BP 118/59; PULSE 75; RESP 12; TEMP 36.5; O2SAT 100
[2022-12-30 15:15] VITALS: BP 124/59; PULSE 83; RESP 12; TEMP 36.5; O2SAT 96
[2022-12-30 15:20] VITALS: BP 138/67; PULSE 79; RESP 12; TEMP 36.5; O2SAT 98
[2022-12-30 15:25] VITALS: BP 138/68; PULSE 86; RESP 12; TEMP 36.6; O2SAT 96
--- NOTE | 2022-12-30 15:28 | P.OP_ITS ---
Operative Date/Time/Diagnoses Date of procedure: 12/30/22 Time of procedure: 15:28 Pre-op diagnosis: Recurrent right inguinal hernia Post-op diagnosis: same Procedure & Clinicians Procedure: Open repair of recurrent right inguinal hernia Same procedure as scheduled: Yes Indications: 77-year-old man previous laparoscopic repair of right inguinal hernia with an early recurrence here for open repair. Surgeon: Urban Foley Click Yes if Unassisted: Yes Anesthesia Type: General Operative Notes Findings: Recurrent indirect defect. No floor defect. Specimen(s): none sent Estimated Blood Loss (mL): 5 Procedure in detail: The patient was placed supine on the table and bilateral lower extremity compr ession devices were applied. Anesthesia was induced they were intubated with an LMA and received Ancef. A time-out was performed. They were prepped and draped in sterile fashion. The right external inguinal ring and the anterior superior iliac crest were identified and marked. 1 finger breath above the inguinal ligament the skin was infiltrated with 0.25% bupivacaine. The skin incision was made, the subcutaneous tissues were divided with electrocautery exposing the external oblique aponeurosis which was then opened along the direction of its fibers. Using blunt dissection the internal oblique aporneurosis was from the external oblique upper leaflet. The cord was carefully dissected away from the inguinal canal adjacent to the pubic tubercle. The cord including the vas deferens, testicular bloody supply, ilioguinal and genital nerve were encircled with a Christine drain. No direct floor defect was identified. The cremasteric fibers surrounding the cord were divided adjacent to the internal ring. The vas deferens and the testicular vessels were preserved and protected. The cord contents were carefully explored. There was a moderate size indirect hernia on the anterior medial aspect of the cord which was skeletonized away from the vas deferens and testicular blood supply. The indirect hernia was skeletonized back to the internal ring and reduced spontaneously into the abdomen. For additional reinforcement a plug of mesh was placed into the internal ring and secured to the surrounding fascia. A 7x 15 cm lightweight Bard Pro Loop hernia mesh was anchored to the insertion of the rectus muscle at the pubic tubercle such that there was approximately 2 cm of tubercle overlap with Ethibond. The inferior edge of the mesh was secured to the shelving edge of the inguinal ligament using Ethibond. Interrupted 3 0 Vicryl suture was used to anchor the superior aspect of the mesh to the conjoined tendon in several places. The tails were then reapproximated loosely around the spermatic cord. The tails of the mesh were then tucked under the external oblique aponeurosis. The repair was checked for hemostasis. The wound was irrigated with sterile saline. The external oblique aponeurosis was reapproximated in a running fashion using 3 0 Vicryl. The subcutaneous tissues were reapproximated with 3 0 Vicryl skin closed with 4 0 Monocryl followed by the application of Dermabond. At the end of the operation I ensured that both testicles were within the scrotum. The sponge instrument count at the end operation was correct. The patient emerged from anesthesia was extubated and transferred to the postoperative care unit in stable condition. A total of 30 ml of of 0.25% bupivicaine was used to infiltrate the skin. Complications: none Post-operative Condition: stable Disposition: same day surgery
[2022-12-30 15:55] VITALS: BP 146/79; PULSE 82; RESP 16; O2SAT 97
== END 2022-12-30 16:35 | disposition home or self-care (01) ==
PROVIDERS: PCP Internal Medicine; Referring Provider Surgery; Visit Provider Surgery
PROC: (CPT 49520; principal; 2022-12-30 13:15)
DX: K40.91 Unilateral inguinal hernia, without obstruction or gangrene, recurrent (principal)
CPT/HCPCS: 49520; J0131; J0330; J0690; J1100; J1170; J1885; J2405; J2704

== ENCOUNTER → 2023-12-20 10:21 | Outpatient (CLI) | payer OTHER, SELFPAY ==
[2023-12-20 12:04] LABS: Hematocrit 44.7 % (41-53); Hemoglobin 14.8 g/dL (13.5-17.5); Mean Corpuscular HGB Conc 33.2 % (30-36); Mean Corpuscular Hemoglobin 31.3 PG (26-34); Mean Corpuscular Volume 94.4 fL (80-100); Platelet Count 211 X10^3/uL (150-400); Red Blood Cell Count 4.74 X10^6/uL (4.5-5.9); Red Cell Distribution Width 13.4 % (11.6-14.8); White Blood Cell Count 5.9 X10^3/uL (4.5-11.0)
[2023-12-20 12:15] LABS: Aspartate Aminotransferase 31 IU/L (17-59); BUN Creatinine Ratio 14.7 (6-22); Blood Urea Nitrogen 17 mg/dL (9-20); Calcium 9.2 mg/dL (8.4-10.2); Carbon Dioxide 29 mmol/L (22-32); Chloride 101 mmol/L (98-107); Cholesterol 165 mg/dL (140-199); Estimated Glomerular Filt Rate > 60 mL/min (>60); Glucose 82 mg/dL (80-110); HDL Cholesterol 59 mg/dL (40-60); HEMOLYSIS < 15 (0-50); LDL Cholesterol Calculated 89 mg/dL (<100); Sodium 135 mmol/L (137-145); Triglycerides 87 mg/dL (35-150)
[2023-12-20 12:19] LABS: Potassium 4.2 mmol/L (3.4-5.1)
[2023-12-20 12:45] LABS: Prostate Specific Antigen 0.149 ng/mL (0.10-4.00)
[2023-12-20 12:46] LABS: TSH w/ Reflex to FT4 2.14 uIU/mL (0.47-4.68)
[2023-12-20 13:46] LABS: Vitamin B12 950 pg/mL (239-931)
== END ==
PROVIDERS: PCP Internal Medicine; Referring Provider Internal Medicine; Visit Provider Internal Medicine
DX: E78.2 Mixed hyperlipidemia (principal); Z85.46 Personal history of malignant neoplasm of prostate; E03.9 Hypothyroidism, unspecified; E53.8 Deficiency of other specified B group vitamins
CPT/HCPCS: 36415; 80048; 80061; 82607; 84153; 84443; 84450; 85027

== ENCOUNTER → 2024-07-26 12:01 | Outpatient (CLI) | payer OTHER, SELFPAY ==
[2024-07-26 12:23] LABS: Hematocrit 42.1 % (41-53); Hemoglobin 14.5 g/dL (13.5-17.5); Mean Corpuscular HGB Conc 34.3 % (30-36); Mean Corpuscular Hemoglobin 31.1 PG (26-34); Mean Corpuscular Volume 90.5 fL (80-100); Platelet Count 259 X10^3/uL (150-400); Red Blood Cell Count 4.65 X10^6/uL (4.5-5.9); Red Cell Distribution Width 13.1 % (11.6-14.8); White Blood Cell Count 7.3 X10^3/uL (4.5-11.0)
[2024-07-26 12:26] LABS: Appearance Urine UA CLEAR; Bilirubin Urine UA NEGATIVE (NEGATIVE); Color Urine UA YELLOW; Glucose Urine UA NEGATIVE (Negative); Ketones Urine UA NEGATIVE (NEGATIVE); Leukocyte Esterase Urine UA NEGATIVE (NEGATIVE); Nitrite Urine UA NEGATIVE (Negative); Occult Blood Urine UA 1+ (Negative); Protein Urine UA NEGATIVE (Negative); Specific Gravity Urine UA 1.025 (1.000-1.035); Urobilinogen Urine UA 0.2 E.U./dL (0.2)
[2024-07-26 12:33] LABS: Bacteria Urine None Seen; Culture Indicated Urine Cult Not Indicated; RBC Urine 0-1/HPF (0-5/HPF); Squamous Epithelial Cell Urine None Seen (0-5/HPF); Urine Volume 10mL (spun); WBC Urine None Seen (0-5/HPF)
[2024-07-26 12:34] LABS: HEMOLYSIS 34 (0-50); Iron 71 ug/dL (49-181)
[2024-07-26 12:36] LABS: Aspartate Aminotransferase 29 IU/L (17-59); BUN Creatinine Ratio 15.9 (6-22); Blood Urea Nitrogen 18 mg/dL (9-20); Calcium 9.3 mg/dL (8.4-10.2); Carbon Dioxide 27 mmol/L (22-32); Chloride 99 mmol/L (98-107); Cholesterol 162 mg/dL (140-199); Estimated Glomerular Filt Rate > 60 mL/min (>60); Glucose 102 mg/dL (70-99); HDL Cholesterol 51 mg/dL (40-60); HEMOLYSIS 20 (0-50); LDL Cholesterol Calculated 96 mg/dL (<100); Sodium 133 mmol/L (137-145); Triglycerides 75 mg/dL (35-150)
[2024-07-26 12:44] LABS: Potassium 5.4 mmol/L (3.4-5.1)
[2024-07-26 12:45] LABS: Percent Iron Saturation 23 % (20-50); Total Iron Binding Capacity 312 ug/dL (261-462); Transferrin 250 mg/dL (206-381)
[2024-07-26 13:08] LABS: TSH w/ Reflex to FT4 1.46 uIU/mL (0.47-4.68)
[2024-07-26 13:10] LABS: Ferritin 89 ng/mL (18-464)
[2024-07-26 13:27] LABS: Vitamin B12 475 pg/mL (239-931)
== END ==
PROVIDERS: PCP Internal Medicine; Referring Provider Internal Medicine; Visit Provider Internal Medicine
DX: E61.1 Iron deficiency (principal); E78.2 Mixed hyperlipidemia; E53.8 Deficiency of other specified B group vitamins; E03.9 Hypothyroidism, unspecified; Z85.46 Personal history of malignant neoplasm of prostate; R10.32 Left lower quadrant pain
CPT/HCPCS: 36415; 80048; 80061; 81001; 82607; 82728; 83540; 83550; 84443; 84450; 85027

== ENCOUNTER → 2024-08-29 11:56 | Outpatient (CLI) | payer OTHER, SELFPAY ==
--- NOTE | 2024-08-29 11:57 | DI.US.S_ITS ---
PROCEDURE: US THYROID INDICATIONS: history of thyroid nodules TECHNIQUE: Real-time scanning was performed of the thyroid gland, with image documentation. COMPARISON: [facility], US, THYROID, 09/05/2015, 10:46. FINDINGS: Thyroid: Right lobe measures 4.9 x 1.6 x 1.6 cm. Left lobe measures 3.9 x 1.1 x 0.8 cm. Isthmus is 0.2 cm thick. Echotexture is homogeneous. No significant thyroid nodules. IMPRESSION: No significant thyroid nodules. Dictated by: Garrett Hendrickson M.D. on 08/29/2024 at 23:30 Approved by: Garrett Hendrickson M.D. on 08/29/2024 at 23:32
== END ==
PROVIDERS: PCP Internal Medicine; Referring Provider Internal Medicine; Visit Provider Internal Medicine
DX: E04.1 Nontoxic single thyroid nodule (principal)
CPT/HCPCS: 76536